=== PATIENT | male | born 1970 | race Caucasian/White ===

== ENCOUNTER 2017-12-15 07:14 | Inpatient (IN) ==
[2017-12-15] MEDS ORDERED: Amoxicillin/Clavulanate 875/125 MG Tablet PO ONE (07:46)
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
[2017-12-15 10:02] LABS: Baso % (Auto) 0.3 % (0.0-2.0); Eos # (Auto) 0.2 th/mm3 (0.0-0.4); Eos % (Auto) 2.8 % (0.0-4.0); Hematocrit 47.1 % (39.0-51.0); Hemoglobin 16.4 gm/dL (13.0-17.0); Lymph # (Auto) 1.3 th/mm3 (1.0-4.8); Lymph % (Auto) 17.2 % (9.0-44.0); Mean Corpuscular HGB Conc 34.8 % (32.0-36.0); Mean Corpuscular Hemoglobin 32.5 pg (27.0-34.0); Mean Corpuscular Volume 93.2 fL (80.0-100.0); Mean Platelet Volume 8.2 fL (7.0-11.0); Mono # (Auto) 0.5 th/mm3 (0.0-0.9); Mono % (Auto) 6.6 % (0.0-8.0); Neut # (Auto) 5.4 th/mm3 (1.8-7.7); Neut % (Auto) 73.1 % (16.0-70.0); Platelet Count 200 th/mm3 (150-450); Red Blood Count 5.05 mil/mm3 (4.50-5.90); Red Cell Distribution Width 13.9 % (11.6-17.2); White Blood Count 7.4 th/mm3 (4.0-11.0)
[2017-12-15 10:18] LABS: Anion Gap 9 meq/L (5-15); Aspartate Aminotransferase 29 U/L (15-37); Blood Urea Nitrogen 36 mg/dL (7-18); Calcium 8.9 mg/dL (8.5-10.1); Carbon Dioxide 25.4 meq/L (21.0-32.0); Chloride 104 meq/L (98-107); Glomerular Filtration Rate 45 mL/min (>89); Glucose,Random 121 mg/dL (74-106); Potassium 3.7 meq/L (3.5-5.1); Sodium 138 meq/L (136-145)
[2017-12-15 10:19] LABS: Alanine Aminotransferase 30 U/L (12-78)
[2017-12-15 10:29] LABS: Alkaline Phosphatase 83 U/L (45-117); Total Protein 7.5 g/dL (6.4-8.2)
[2017-12-15 12:00] LABS: Amphetamine Screen,Urine Pos (Neg); Barbiturate Screen,Urine Neg (Neg); Cannabinoid Screen,Urine Pos (Neg); Cocaine Screen,Urine Pos (Neg)
[2017-12-15 12:01] LABS: Opiate Screen,Urine Neg (Neg)
[2017-12-15] MEDS: Amoxicillin/Clavulanate 875/125 MG Tablet PO SCH (21:14)
[2017-12-16] MEDS ORDERED: Acetaminophen 325 MG Tablet PO PRN (09:15)
[2017-12-16] MEDS ORDERED: Aluminum/Magnesium/Simethacone Susp 30 ML UDC PO PRN (09:15)
[2017-12-16] MEDS ORDERED: Bisacodyl 10 MG Supp RECTAL PRN (09:15)
[2017-12-16] MEDS: Amoxicillin/Clavulanate 875/125 MG Tablet PO SCH ×2 (13:14→20:46)
[2017-12-16] MEDS: Atenolol 50 MG Tablet PO SCH (13:15)
[2017-12-16] MEDS: Gabapentin 300 MG Capsule PO SCH ×2 (13:15→17:24)
[2017-12-16] MEDS: Celecoxib 200 MG Capsule PO SCH (13:54)
--- NOTE | 2017-12-16 14:48 | P.HPPSY ---
Provisional Diagnosis Admission Date: December 16, 2017 09:12 [place] I.: Major depressive disorder, recurrent, severe, without psychosis, PTSD, anxiety, polysubstance dependence including cocaine, methamphetamines, alcohol, cannabis [place] II.: Deferred [place] III.: Hypertension, lupus, rheumatoid arthritis Competence Certification of Person's Competence To Provide Express and Informed Consent I have personally examined Alhaji Jesus, a person being served at [facility] on, December 16, 2017 1432. Express and informed consent means consent voluntarily given in writing, by a competent person, after sufficient explanation and disclosure of the subject matter involved to enable the person to make a knowing and willful decision without any element of force, fraud, deceit, duress, or other form of constraint or coercion. This person is 18 years of age or older, is not now known to be incompetent to consent to treatment with a guardian advocate, and does not have a health care surrogate or proxy currently making medical treatment decisions. I have found this person to be one of the following: [x] Competent to provide express and informed consent, as defined above, for voluntary admission to this facility and is competent to provide express and informed consent for treatment. He/she has the consistent capacity to make well reasoned, willful, and knowing decisions concerning his or her medical or mental health treatment. The person fully and consistently understands the purpose of the admission for examination/placement and is fully capable of personally exercising all rights assured under [place] Incompetent to provide express and informed consent to voluntary admission, and this is incompetent to provide express and informed consent to treatment. The person must be transferred to involuntary status and a petition for a guardian advocate filed with the Circuit Court. [] Refusing to provide express and informed consent to voluntary admission but is competent to provide express and informed consent for treatment. The person must be discharged or transferred to involuntary status. Form shall be completed within 24 hours of a person's arrival at the receiving facility and filed in the clinical record of each person: 1. Admitted on a voluntary basis 2. Permitted to provide express and informed consent to his/her own treatment 3. Allowed to transfer from involuntary to voluntary status 4. Prior to permitting a person to consent to his or her own treatment after having been previously found incompetent to consent to treatment. History of Present Illness Capacity: Has capacity History of Present Illness: The patient is a 47-year-old man, domiciled with a roommate in [facility] , single, unemployed, , 50% service-connected, with a self-reported psychiatric history of PTSD, depression, anxiety, polysubstance dependence including alcohol, opiates, methamphetamines, cocaine, cannabis, multiple psychiatric hospitalizations, previous suicide attempts, he was hospitalized twice in the last 2 months in [facility], he is on Wellbutrin 150 mg twice daily, that he is noncompliant with, he has medical history of rheumatoid arthritis, hypertension, hopeless, who presents under Rodriguez act initiated by the Police Department. According to his paperwork the patient called the police saying that he was suicidal and wanted treatment. He told the police "he took psychiatric medication but had not taken any in a significant amount of time." Patient reports that he is from [place] but travel here with a woman several months ago. He reports that he has been using drugs over the past several days, specifically "speed" and Dilaudid. He reports passive suicidal thoughts without a plan. "I do not really want to , I want to help and I want to be in a better position to leave [place]". He reports that given the fact that he has poor social and economical support, that he has been walking daily by days in the street, in the heat, with no friends, he has been feeling helpless, hopeless, worthless, and having the suicidal thoughts. He denies auditory visual hallucinations, homicidal ideation. Patient reports that he was in combat in [place], and after returning to the [facility] he was having nightmares, hypervigilance, flashbacks, he was diagnosed with [facility] he [facility] and he was discharged he denies symptoms of PTSD at this moment. PPHx: PTSD, depression, anxiety, multiple psychiatric hospitalizations, 2 hospitalizations in the last 2 months in [place], he is in Wellbutrin 150 mg twice daily, noncompliant with his medications, previous suicide attempts. Family Hx: His mother has history of depression PMHx: Hypertension, rheumatoid arthritis, lupus Substance Hx: He reports the use of cannabis, cocaine, methamphetamines, alcohol , Charisma, opiates Social Hx: The patient was born and raised in [place], he lives in [facility] with a roommate, single, employed, supported by [place] service connection, his highest level of education is high school - Inpatient Certification I certify that the inpatient services were ordered in accordance with Medicare regulations governing the order. This includes certification that hospital inpatient services are reasonable and necessary and in the case of services not specified as inpatient-only under 42 CFR 419.22(n), that they are appropriately provided as inpatient services in accordance to with the 2-midnight benchmark under 43 CFR 412.3(e) I certify that inpatient psychiatric hospital services are medically necessary. Evaluation and treatment and/or diagnostic testing are expected to improve the patient's condition. The patient needs on a daily basis, active treatment furnished directly by or requiring the supervision of inpatient psychiatric facility personnel. Estimated Total Length of Stay (Days): 5 Plans for Post Hospital Care: Not yet determined Review of Systems All other systems reviewed negative except as stated in HPI Neurologic: Reports abnormal hearing Psychiatric: Reports abnormal sleep pattern, Reports anxiety, Reports depression , Reports hopelessness, Reports irritability, Reports lack of enjoyment, Reports mood swings, Reports thoughts of hurting/killing yourself PMFSH - History History Provided By: Patient - Tobacco History Second Hand Smoke Exposure: Yes Tobacco Use In Past 30 Days: Yes Smoking Status: Current every day smoker Tobacco Type: Cigarettes - Alcohol History How Often Do You Have a Drink Containing Alcohol: Monthly or less - Substance Use History Substance History: Past History - Immunization History Tetanus Immunization: <5 Years Medications and Allergies Active Medications: Active Medications Acetaminophen (Tylenol) 650 mg PO Q4H PRN PRN Reason: Pain 1-5 or Temp >101F Al Hydrox/Mg Hydrox/Simethicone (Mag-Al Plus Susp Liq) 30 ml PO Q6H PRN PRN Reason: DYSPEPSIA Al Hydroxide/Mg Hydroxide (Milk Of Magnesia Liq) 30 ml PO Q12H PRN PRN Reason: Mild Constipation Amoxicillin/Clavulanate Potassium (Augmentin 875/125 Mg) 1 tab PO Q12H [facility] Last Admin: 12/16/17 13:14 Dose: Not Given Atenolol (Tenormin) 50 mg PO DAILY [facility] Last Admin: 12/16/17 13:15 Dose: 50 mg Bisacodyl (Dulcolax Supp) 10 mg RECTAL DAILY PRN PRN Reason: SEVERE CONSITIPATION Celecoxib (Celebrex) 200 mg PO DAILY [facility] Last Admin: 12/16/17 13:54 Dose: 200 mg Clonazepam (Klonopin) 1 mg PO Q8HR PRN PRN Reason: ANXIETY Diphenhydramine HCl (Benadryl) 50 mg PO HS PRN PRN Reason: INSOMNIA Duloxetine HCl (Cymbalta) 30 mg PO DAILY [facility] Last Admin: 12/16/17 13:15 Dose: 30 mg Gabapentin (Neurontin) 300 mg PO TID [facility] Last Admin: 12/16/17 13:15 Dose: 300 mg Lactulose (Lactulose Liq) 30 ml PO DAILY PRN PRN Reason: SEVERE CONSITIPATION Nicotine (Habitrol 21 Mg Patch.24 Hr) 1 patch T-DERMAL DAILY [facility] Last Admin: 12/16/17 13:16 Dose: 1 patch Non-Formulary Medication (Quetiapine [Seroquel]) 400 mg PO HS [facility] Patch Removal (Remove Old Patch) 1 each T-DERMAL DAILY [facility] Senna/Docusate Sodium (Soledad-Colace) 1 tab PO BID [facility] Sennosides (Senokot) 17.2 mg PO Q12H PRN PRN Reason: Moderate Constipation Allergies Allergy/AdvReac Type Severity Reaction Status Date / Time No Known Allergies Allergy Unverified 12/15/17 07:46 Home Medications Medication Instructions Recorded Confirmed Type Wellbutrin SR 150 mg PO DAILY 12/15/17 12/15/17 History atenolol 50 mg PO DAILY 12/15/17 12/15/17 History celecoxib 200 mg PO DAILY 12/15/17 12/15/17 History gabapentin 300 mg PO TID 12/15/17 12/15/17 History quetiapine [Seroquel] 400 mg PO HS 12/15/17 12/15/17 History Results - Labs CBC & Chem 7: 12/15/17 09:33 12/15/17 09:33 Exam Vital signs: Vital Signs 12/15/17 18:20 12/15/17 23:24 12/16/17 06:36 Temperature 97.9 F Pulse Rate 96 H 106 H 101 H Respiratory Rate 18 18 18 Blood Pressure 119/59 L 136/78 159/85 H Pulse Oximetry 96 99 98 12/16/17 12:00 Temperature 98.7 F Pulse Rate 118 H Respiratory Rate 18 Blood Pressure 155/93 H Pulse Oximetry Intake & Output 12/15/17 12/16/17 12/16/17 18:59 06:59 18:59 Weight 149.685 kg 144.3 kg Other: Weight On Admission 14.3 kg Narrative: No tremors, no EPS, no psychomotor agitation retardation, no gait disturbances, no withdrawal symptoms present at the moment - Constitutional mild distress - Routine HEENT Exam Head: Present: normocephalic, atraumatic Eye: Present: EOMI, PERRL ENT: Present: mucous membranes moist Mental Status Examination Appearance: Appropriate Consciousness: Alert Orientation: x4 Motor Activity: Normal gait Speech: Unremarkable Language: Adequate Fund of Knowledge: Adequate Attention and Concentration: Adequate Memory: Unremarkable Mood: Sad, Irritable Affect: Sad Thought Process & Associations: Intact Thought Content: Appropriate Hallucination Type: None Delusion Type: None Suicidal Ideation: Yes Suicidal Plan: No Suicidal Intention: No Homicidal Ideation: No Homicidal Plan: No Homicidal Intention: No Insight: Poor Judgment: Poor Assessment and Plan - Plan Plan: Estimated LOS: [] days On psychiatric evaluation today the patient presents with symptomatology of acute and severe depression and suicidal ideation in the context of homelessness , poor social and family support, noncompliant with medications, increased use of psychoactive drugs. The patient reports that for the last week he has been feeling hopeless, helpless, worthless, with increased sensitivity to frustration , rejection, increased generalized pessimism, suicidal ideation without a specific plan. There is a patient with a psychiatric history of PTSD, depression, suicidal attempts, multiple psychiatric hospitalizations, polysubstance dependence including opiates, methamphetamines, cocaine, alcohol, cannabis. At this moment the patient has an elevated risk of danger to self, he will be admitted in psychiatry for stabilization and safety. He is willing to sign voluntary admission. I will discontinue Wellbutrin given his history of alcohol use and risk of seizures. Start Cymbalta 30 mg daily. Clonazepam 1 mg twice daily for anxiety. Transfer the patient to 2600 unit. Obviously, conscious simulation with secondary gain of use in the hospital as a residential and as a source of narcotics has to be the differential of this patient and explore carefully. Brief supportive psychotherapy provided. Justification for Continued Inpatient Stay: Patient will be admitted in 2600 unit
[2017-12-16] MEDS: clonazePAM 1 MG Tablet PO PRN (14:57)
[2017-12-16] MEDS: Senna/Docusate Sodium 8.6/50 MG Tablet PO SCH (20:46)
[2017-12-16] MEDS ORDERED: QUETIAPINE 400 MG PO SCH (21:00)
[2017-12-17 07:45] LABS: Calcium 8.4 mg/dL (8.5-10.1); Carbon Dioxide 24.9 meq/L (21.0-32.0); Chol/HDL Ratio 5.83 Ratio; HDL Cholesterol 32.9 mg/dL (40.0-60.0)
[2017-12-17 07:47] LABS: Potassium 4.1 meq/L (3.5-5.1)
[2017-12-17] MEDS: Amoxicillin/Clavulanate 875/125 MG Tablet PO SCH ×2 (09:20→20:52)
[2017-12-17] MEDS: Gabapentin 300 MG Capsule PO SCH ×3 (09:21→17:46)
[2017-12-17] MEDS: Celecoxib 200 MG Capsule PO SCH (09:21)
[2017-12-17] MEDS: Atenolol 50 MG Tablet PO SCH (09:21)
[2017-12-17] MEDS: Senna/Docusate Sodium 8.6/50 MG Tablet PO SCH ×2 (09:21→20:52)
[2017-12-17] MEDS: clonazePAM 1 MG Tablet PO PRN (09:58)
--- NOTE | 2017-12-17 14:38 | P.PNPSY ---
Subjective Remarks: Patient seen and examined with nurse. Chart reviewed. Dr. Xiong's H&P reviewed. Case discussed with nursing staff. Per nursing staff, patient is seclusive to room and refusing some treatments including EKG and antibiotic. On my examination today, the patient presents as dysphoric and withdrawn. He endorses vague suicidal ideation but does not describe any urge to hurt himself on the inpatient unit. Says that he has been feeling more hopeless since coming to [place] from [place]. Denies AVH. Denies side effects from medications. Complains of chronic back and leg pain. No other physical complaints. Vital Signs Temp Pulse Resp BP Pulse Ox 12/17/17 06:14 97.8 F 82 16 128/63 95 12/16/17 16:00 98.4 F 83 18 158/93 H 97 Laboratory Tests 12/15/17 12/15/17 12/15/17 09:33 09:33 11:17 WBC 7.4 Hgb 16.4 Plt Count 200 Sodium Potassium Chloride Carbon Dioxide BUN Creatinine Estimated GFR AST 29 ALT 30 Alkaline Phosphatase 83 TSH 1.380 Ur Amphetamines Screen Pos H Urine Cocaine Screen Pos H U Cannabinoids Screen Pos H Serum Alcohol Less than 3 12/17/17 06:35 WBC Hgb Plt Count Sodium 142 Potassium 4.1 Chloride 111 H Carbon Dioxide 24.9 BUN 24 H Creatinine 0.94 Estimated GFR 86 L AST ALT Alkaline Phosphatase TSH Ur Amphetamines Screen Urine Cocaine Screen U Cannabinoids Screen Serum Alcohol Labs reviewed. Review of Systems All other systems reviewed negative except as stated in HPI Mental Status Examination Appearance: Appropriate Consciousness: Alert Orientation: Person, Place (At least) Motor Activity: Other (No motor abnormalities noted. No signs of withdrawal noted.) Speech: Unremarkable Language: Adequate Fund of Knowledge: Adequate Attention and Concentration: Adequate Memory: Unremarkable (Grossly intact on clinical exam) Mood: Other (Dysphoric) Affect: Other (Restricted) Thought Process & Associations: Intact Thought Content: Appropriate Hallucination Type: None Delusion Type: None Suicidal Ideation: Yes (Vague) Suicidal Plan: No Suicidal Intention: No Homicidal Ideation: No Homicidal Plan: No Homicidal Intention: No Insight: Fair Judgment: Impulsive Assessment and Plan - Assessment (1) Adjustment disorder with depressed mood Code(s): F43.21 - Adjustment disorder with depressed mood Status: Acute (2) Polysubstance abuse Code(s): F19.10 - Other psychoactive substance abuse, uncomplicated Status: Acute - Plan Plan: Continue Cymbalta as ordered with plans for possible dose titration tomorrow. Continue Seroquel at bedtime as ordered. I note that Dr. Xiong has started the patient on some Klonopin as needed. I will continue this agent for now but will not escalate the dose and we will monitor usage pattern closely in light of patient's history of substance use disorder. I will add Lidoderm patch for back pain. Encourage compliance with treatment including antibiotics. Encouraged participation in groups and unit activities. Continue to monitor on inpatient unit. Continue other medications and care as ordered. Justification for Continued Inpatient Stay: Monitoring for impairment in safety. Risk for decompensation in less restrictive environment. Discharge Planning: Pending stabilization. Request Healthcare Surrogate/Guardian Advocate?: No
[2017-12-17] MEDS: Lidocaine 5% Patch T-DERMAL SCH (17:48)
[2017-12-17 18:02] LABS: Hemoglobin A1c 4.8 % (4.3-6.0)
[2017-12-18] MEDS: Amoxicillin/Clavulanate 875/125 MG Tablet PO SCH ×2 (09:51→20:09)
[2017-12-18] MEDS: Celecoxib 200 MG Capsule PO SCH (09:53)
[2017-12-18] MEDS: Gabapentin 300 MG Capsule PO SCH ×2 (09:53→13:46)
[2017-12-18] MEDS: Atenolol 50 MG Tablet PO SCH (09:54)
[2017-12-18] MEDS: Lidocaine 5% Patch T-DERMAL SCH (09:56)
[2017-12-18] MEDS: clonazePAM 1 MG Tablet PO PRN ×2 (11:16→20:09)
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
[2017-12-18] MEDS: Duloxetine 60 MG DR Capsule PO SCH (15:10)
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
[2017-12-18] MEDS: Gabapentin 400 MG Capsule PO SCH (18:13)
[2017-12-19] MEDS: Amoxicillin/Clavulanate 875/125 MG Tablet PO SCH ×2 (10:03→21:13)
[2017-12-19] MEDS: Celecoxib 200 MG Capsule PO SCH (10:04)
[2017-12-19] MEDS: Atenolol 50 MG Tablet PO SCH (10:05)
[2017-12-19] MEDS: clonazePAM 1 MG Tablet PO PRN ×2 (10:05→20:30)
[2017-12-19] MEDS: Duloxetine 60 MG DR Capsule PO SCH (10:06)
[2017-12-19] MEDS: Gabapentin 400 MG Capsule PO SCH ×3 (10:06→18:46)
[2017-12-19] MEDS: Lidocaine 5% Patch T-DERMAL SCH (10:08)
--- NOTE | 2017-12-19 15:18 | P.PNPSY ---
Subjective Remarks: Reviewed electronic medical records and discussed case with staff. Follow-up was conducted in the exam room. Patient's nurse advises that he has been somewhat irritable with several of the other patients on the unit. Patient reports that he sleeping and eating well. He denies any side effects from the medication. His mood still depressed and is affect flat. I cautioned him to remember where he is and to try to be more tolerant with the other patients. Mental Status Examination Appearance: Appropriate Consciousness: Alert Orientation: Person, Place (At least) Motor Activity: Other (No motoric abnormalities noted. No signs of withdrawal noted.) Speech: Unremarkable Language: Adequate Fund of Knowledge: Adequate Attention and Concentration: Adequate Memory: Unremarkable (Grossly intact on clinical exam) Mood: Other (Dysphoric) Affect: Other (Remains restricted.) Thought Process & Associations: Intact Thought Content: Appropriate Hallucination Type: None Delusion Type: None Suicidal Ideation: No Suicidal Plan: No Suicidal Intention: No Homicidal Ideation: No Homicidal Plan: No Homicidal Intention: No Insight: Fair Judgment: Impulsive Assessment and Plan - Assessment (1) Adjustment disorder with depressed mood Code(s): F43.21 - Adjustment disorder with depressed mood Status: Acute - Plan Plan: Patient will be reevaluated Friday by the attending psychiatrist. Continue with current treatment plan. Justification for Continued Inpatient Stay: Moving this patient to a less restrictive environment would likely result in decompensation. Request Healthcare Surrogate/Guardian Advocate?: No
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
[2017-12-20] MEDS: Celecoxib 200 MG Capsule PO SCH (09:29)
[2017-12-20] MEDS: Atenolol 50 MG Tablet PO SCH (09:30)
[2017-12-20] MEDS: Duloxetine 60 MG DR Capsule PO SCH (09:30)
[2017-12-20] MEDS: Gabapentin 400 MG Capsule PO SCH ×3 (09:30→17:57)
[2017-12-20] MEDS: Amoxicillin/Clavulanate 875/125 MG Tablet PO SCH ×2 (09:31→20:00)
[2017-12-20] MEDS: Lidocaine 5% Patch T-DERMAL SCH (09:31)
[2017-12-20] MEDS: clonazePAM 1 MG Tablet PO PRN (13:19)
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
--- NOTE | 2017-12-20 15:54 | P.PNPSY ---
Subjective Remarks: Reviewed electronic medical records and discussed case with staff. Follow-up was conducted in patient's room with ULISSES Duron present. Patient found lying in his bed awake. He reports that he still has some agitation. States his appetite's been good. His mood is fair. His affect remained somewhat flat. He denies any side effects from the medication. He denies having had any suicidal ideation since arriving on the unit. Mental Status Examination Appearance: Appropriate Consciousness: Alert Orientation: Person, Place (At least) Motor Activity: Other (No motoric abnormalities noted. No signs of withdrawal noted.) Speech: Unremarkable Language: Adequate Fund of Knowledge: Adequate Attention and Concentration: Adequate Memory: Unremarkable (Grossly intact on clinical exam) Mood: Other (Dysphoric) Affect: Other (Remains restricted.) Thought Process & Associations: Intact Thought Content: Appropriate Hallucination Type: None Delusion Type: None Suicidal Ideation: No Suicidal Plan: No Suicidal Intention: No Homicidal Ideation: No Homicidal Plan: No Homicidal Intention: No Insight: Fair Judgment: Impulsive Assessment and Plan - Assessment (1) Adjustment disorder with depressed mood Code(s): F43.21 - Adjustment disorder with depressed mood Status: Acute - Plan Plan: Patient will be reevaluated Friday by the attending psychiatrist. Continue with current treatment plan. Justification for Continued Inpatient Stay: Moving this patient to a less restrictive environment would likely result in decompensation. Request Healthcare Surrogate/Guardian Advocate?: No
[2017-12-21] MEDS: Lidocaine 5% Patch T-DERMAL SCH (09:00)
[2017-12-21] MEDS: Gabapentin 400 MG Capsule PO SCH ×3 (10:42→17:28)
[2017-12-21] MEDS: Duloxetine 60 MG DR Capsule PO SCH (10:42)
[2017-12-21] MEDS: Celecoxib 200 MG Capsule PO SCH (10:43)
[2017-12-21] MEDS: Atenolol 50 MG Tablet PO SCH (10:43)
[2017-12-21] MEDS: clonazePAM 1 MG Tablet PO PRN ×2 (11:04→21:36)
[2017-12-21] MEDS: Amoxicillin/Clavulanate 875/125 MG Tablet PO SCH ×2 (14:28→21:36)
--- NOTE | 2017-12-21 14:53 | P.PNPSY ---
Subjective Chief Complaint: Adjustment Disorder with depressed mood Remarks: Reviewed electronic medical records and discussed case with staff. Follow-up was conducted in patient's room with ULISSES Renee. Staff report that patient is from [place] and shortly after he moved to [place] his significant other left him. Patient is interacting with the females on the unit. Sleeping and eating well. Denies any suicidal or homicidal ideations. Review of Systems All other systems reviewed negative except as stated in HPI Mental Status Examination Appearance: Appropriate Consciousness: Alert Orientation: x4 Motor Activity: Other (No motoric abnormalities noted. No signs of withdrawal noted.) Speech: Unremarkable Language: Adequate Fund of Knowledge: Adequate Attention and Concentration: Adequate Memory: Unremarkable (Grossly intact on clinical exam) Mood: Other (Dysphoric) Affect: Other (Remains restricted.) Thought Process & Associations: Intact Thought Content: Appropriate Hallucination Type: None Delusion Type: None Suicidal Ideation: No Suicidal Plan: No Suicidal Intention: No Homicidal Ideation: No Homicidal Plan: No Homicidal Intention: No Insight: Fair Judgment: Impulsive Assessment and Plan - Assessment (1) Adjustment disorder with depressed mood Code(s): F43.21 - Adjustment disorder with depressed mood Status: Acute (2) Polysubstance abuse Code(s): F19.10 - Other psychoactive substance abuse, uncomplicated Status: Acute - Plan Plan: Patient will be reevaluated Friday by the attending psychiatrist. Continue with current treatment plan. Justification for Continued Inpatient Stay: Moving patient to a less restrictive environment may result in her decompensation. Request Healthcare Surrogate/Guardian Advocate?: No
[2017-12-22] MEDS: Celecoxib 200 MG Capsule PO SCH (08:44)
[2017-12-22] MEDS: Gabapentin 400 MG Capsule PO SCH ×3 (08:44→18:25)
[2017-12-22] MEDS: Atenolol 50 MG Tablet PO SCH (08:45)
[2017-12-22] MEDS: Duloxetine 60 MG DR Capsule PO SCH (08:45)
[2017-12-22] MEDS: Lidocaine 5% Patch T-DERMAL SCH (08:48)
[2017-12-22] MEDS: Amoxicillin/Clavulanate 875/125 MG Tablet PO SCH ×2 (09:10→20:51)
[2017-12-22] MEDS: clonazePAM 1 MG Tablet PO PRN ×2 (12:47→20:50)
--- NOTE | 2017-12-22 13:43 | P.PNPSY ---
Subjective Chief Complaint: Adjustment Disorder with depressed mood Remarks: Patient seen and examined with nurse. Chart reviewed. Case discussed with nursing staff. No behavioral issues noted. Patient noted to be fairly seclusive to room. Case discussed with counselor who will liaison with patient' s [facility] case resolution specialist to work on possible discharge plan for tomorrow. On my examination today, the patient says that he feels somewhat improved. Back pain somewhat lessened with Cymbalta. Denies SI or HI. No AVH. Denies side effects from medications. No physical complaints. Vital Signs Temp Pulse Resp BP Pulse Ox 12/22/17 06:00 97.7 F 82 16 132/81 96 12/21/17 18:00 16 Intake and Output 12/21/17 12/22/17 12/22/17 22:59 06:59 14:59 Other: Weight 151.1 kg Labs reviewed. Review of Systems All other systems reviewed negative except as stated in HPI Mental Status Examination Appearance: Appropriate Consciousness: Alert Orientation: x4 Motor Activity: Other (No signs of withdrawal noted. No motor abnormalities noted.) Speech: Unremarkable Language: Adequate Fund of Knowledge: Adequate Attention and Concentration: Adequate Memory: Unremarkable (Grossly intact on clinical exam) Mood: Other (Mildly dysphoric) Affect: Blunt Thought Process & Associations: Intact, Logical, Linear Thought Content: Appropriate Hallucination Type: None Delusion Type: None Suicidal Ideation: No Suicidal Plan: No Suicidal Intention: No Homicidal Ideation: No Homicidal Plan: No Homicidal Intention: No Mental Status Exam Remarks: Insight and judgment are perhaps fair Assessment and Plan - Assessment (1) Adjustment disorder with depressed mood Code(s): F43.21 - Adjustment disorder with depressed mood Status: Acute (2) Polysubstance abuse Code(s): F19.10 - Other psychoactive substance abuse, uncomplicated Status: Acute - Plan Plan: Continue current psychiatric medications as ordered. Hospitalist input noted and appreciated. Continue other medications and care as ordered. Justification for Continued Inpatient Stay: Risk for decompensation in less restrictive environment. Discharge Planning: Possible discharge next 1-2 days. Case discussed with counselor. Request Healthcare Surrogate/Guardian Advocate?: No
[2017-12-23] MEDS: Duloxetine 60 MG DR Capsule PO SCH (09:08)
[2017-12-23] MEDS: Atenolol 50 MG Tablet PO SCH (09:08)
[2017-12-23] MEDS: Celecoxib 200 MG Capsule PO SCH (09:08)
[2017-12-23] MEDS: Lidocaine 5% Patch T-DERMAL SCH (09:09)
[2017-12-23] MEDS: Amoxicillin/Clavulanate 875/125 MG Tablet PO SCH ×2 (09:09→20:38)
[2017-12-23] MEDS: Gabapentin 400 MG Capsule PO SCH ×2 (09:09→13:13)
[2017-12-23] MEDS: clonazePAM 1 MG Tablet PO PRN ×2 (11:44→20:09)
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
--- NOTE | 2017-12-23 16:35 | P.PNPSY ---
Subjective Chief Complaint: Adjustment Disorder with depressed mood Remarks: Patient seen and examined. Chart reviewed. Case discussed with staff. Case discussed in treatment team. Counselor shares that there may be a component of secondary gain for group home. On my exam, patient complains of anxiety and is requesting additional medication for this. We discuss titration of gabapentin for off-label management of anxiety. He feels his antidepressant is adequate. No SI or HI. No psychotic material. No side effects from medications. No physical complaints. Vital Signs Temp Pulse Resp BP Pulse Ox 12/23/17 05:47 98.1 F 78 18 121/67 95 12/22/17 18:56 97.5 F L 77 18 158/90 H 93 L 12/22/17 18:15 90 18 158/87 H 12/22/17 18:00 77 20 171/104 H Labs reviewed. No new labs. Review of Systems All other systems reviewed negative except as stated in HPI Mental Status Examination Appearance: Appropriate Consciousness: Alert Orientation: x4 Motor Activity: Other (No motor abnormalities noted. No signs of any withdrawal noted.) Speech: Unremarkable Language: Adequate Fund of Knowledge: Adequate Attention and Concentration: Adequate Memory: Unremarkable (Grossly intact on clinical exam) Mood: Anxious Affect: Blunt Thought Process & Associations: Intact, Logical, Linear Thought Content: Appropriate Hallucination Type: None Delusion Type: None Suicidal Ideation: No Homicidal Ideation: No Insight: Fair Judgment: Impulsive Assessment and Plan - Assessment (1) Adjustment disorder with depressed mood Code(s): F43.21 - Adjustment disorder with depressed mood Status: Acute (2) Polysubstance abuse Code(s): F19.10 - Other psychoactive substance abuse, uncomplicated Status: Acute - Plan Plan: Titrate gabapentin to 600 mg 3 times daily for management of anxiety. I have discussed with the patient that this is off label use of this medication. Continue other psychiatric medications as ordered. Continue other care as ordered. Continue to monitor on the inpatient unit. Hospitalist input noted and appreciated, and I did discuss the case briefly with the mid-level from the hospitalist service. Justification for Continued Inpatient Stay: Medication changes. Discharge Planning: Possible discharge next 1-2 days. Request Healthcare Surrogate/Guardian Advocate?: No
[2017-12-23] MEDS: Gabapentin 300 MG Capsule PO SCH (18:39)
[2017-12-24] MEDS: Amoxicillin/Clavulanate 875/125 MG Tablet PO SCH ×2 (08:32→20:49)
[2017-12-24] MEDS: Duloxetine 60 MG DR Capsule PO SCH (08:33)
[2017-12-24] MEDS: Lidocaine 5% Patch T-DERMAL SCH (08:33)
[2017-12-24] MEDS: Celecoxib 200 MG Capsule PO SCH (08:33)
[2017-12-24] MEDS: Atenolol 50 MG Tablet PO SCH (08:33)
[2017-12-24] MEDS: Gabapentin 300 MG Capsule PO SCH ×2 (08:33→12:30)
[2017-12-24] MEDS: clonazePAM 1 MG Tablet PO PRN (12:30)
--- NOTE | 2017-12-24 13:03 | P.PNPSY ---
Subjective Chief Complaint: Adjustment Disorder with depressed mood Remarks: Patient seen and examined with nurse. Chart reviewed. Case discussed with nursing staff. No behavioral issues noted. Case discussed with counselor. On my examination today, the patient says that he is still feeling stressed and anxious. Affect remains a little dysphoric. No SI or HI. No side effects from medications. No physical complaints. Patient would like to continue to titrate gabapentin to target anxiety, and I did caution him about the potential for emergence of side effects at higher doses. Vital Signs Temp Pulse Resp BP Pulse Ox 12/24/17 06:13 97.9 F 73 18 117/56 L 95 Intake and Output 12/24/17 12/24/17 12/24/17 06:59 14:59 22:59 Intake Total 960 / 960 Balance 960 / 960 Intake: Oral 960 / 960 Labs reviewed. No new labs. Review of Systems All other systems reviewed negative except as stated in HPI Mental Status Examination Appearance: Appropriate Consciousness: Alert Orientation: x4 Motor Activity: Other (No withdrawal. No motor abnormalities.) Speech: Unremarkable Language: Adequate Fund of Knowledge: Adequate Attention and Concentration: Adequate Memory: Unremarkable (Grossly intact on clinical exam) Mood: Anxious Affect: Blunt Thought Process & Associations: Intact, Logical, Linear Thought Content: Appropriate Hallucination Type: None Delusion Type: None Suicidal Ideation: No Suicidal Plan: No Suicidal Intention: No Homicidal Ideation: No Homicidal Plan: No Homicidal Intention: No Mental Status Exam Remarks: Insight and judgment are fair Assessment and Plan - Assessment (1) Adjustment disorder with depressed mood Code(s): F43.21 - Adjustment disorder with depressed mood Status: Acute (2) Polysubstance abuse Code(s): F19.10 - Other psychoactive substance abuse, uncomplicated Status: Acute - Plan Plan: Titrate gabapentin to 800 mg 3 times daily. I will taper patient's Klonopin to 0.5 mg every 8 hours as needed to avoid excessive PSYCHOLOGY TECHNICIAN depression in combination with titration of gabapentin. Continue other psychotropics as ordered. Continue to monitor on the inpatient unit. Continue other medications and care as ordered. Justification for Continued Inpatient Stay: Medication changes. Discharge Planning: Possible discharge by the end of the week. Request Healthcare Surrogate/Guardian Advocate?: No
[2017-12-24] MEDS: Gabapentin 400 MG Capsule PO SCH (17:49)
[2017-12-24] MEDS: clonazePAM 0.5 MG Tablet PO PRN (20:33)
[2017-12-25] MEDS: Gabapentin 400 MG Capsule PO SCH ×3 (08:25→17:39)
[2017-12-25] MEDS: Duloxetine 60 MG DR Capsule PO SCH (08:25)
[2017-12-25] MEDS: Celecoxib 200 MG Capsule PO SCH (08:25)
[2017-12-25] MEDS: Atenolol 50 MG Tablet PO SCH (08:25)
[2017-12-25] MEDS: Amoxicillin/Clavulanate 875/125 MG Tablet PO SCH ×2 (08:26→21:24)
[2017-12-25] MEDS: Lidocaine 5% Patch T-DERMAL SCH (08:26)
[2017-12-25] MEDS: clonazePAM 0.5 MG Tablet PO PRN (12:04)
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
[2017-12-25 18:54] VITALS: BP 145/88; PULSE 75; RESP 18; O2SAT 96
[2017-12-26 05:35] VITALS: TEMP 98.1
[2017-12-26] MEDS: Gabapentin 400 MG Capsule PO SCH (08:01)
[2017-12-26] MEDS: Celecoxib 200 MG Capsule PO SCH (08:01)
[2017-12-26] MEDS: Duloxetine 60 MG DR Capsule PO SCH (08:01)
[2017-12-26] MEDS: clonazePAM 0.5 MG Tablet PO PRN (08:01)
[2017-12-26] MEDS: Atenolol 50 MG Tablet PO SCH (08:01)
[2017-12-26] MEDS: Amoxicillin/Clavulanate 875/125 MG Tablet PO SCH (08:01)
[2017-12-26] MEDS: Lidocaine 5% Patch T-DERMAL SCH (08:05)
== END 2017-12-26 09:40 | disposition home or self-care (01) ==
LOC: NEPD 07:14 → NEDA 12-16 09:12 → H260 12-16 11:07
PROVIDERS: ADMIT Psychiatry & Neurology Psychiatry; ATTEND Psychiatry & Neurology Psychiatry